=== PATIENT | female | born 1970 | race African-American/Black ===

== ENCOUNTER 2016-06-11 14:56 | Emergency (ER) | payer MEDICAID, OTHER ==
[~2016-06-11] VITALS: Ht 167.6 cm; Wt 85.7 kg
[~2016-06-11 14:56] MED LIST: CYCLOBENZAPRINE10 MG ORAL; IBUPROFEN600 MG ORAL; NORCO 5-325 TA1 EACH ORAL
[2016-06-11] MEDS ORDERED: NKM (15:13)
[2016-06-11 15:18] VITALS: BP 156/86
--- NOTE | 2016-06-11 15:43 | Emergency Room Report ---
History of Present Illness General Chief Complaint: Sore Throat Source: Patient Present Illness HPI 45 YO Female presents to the ED c/o : sore throat, tonsillar swelling, and unilateral nasal congestion with facial pain and purulent d/c x 4 days. She denies fevers however she does report chills patient denies cough at this time patient reports increased mucus production and then reports that she has unilateral nasal congestion and is blowing thick green and bloody mucus from her nose. Patient also reports 8/10 headache which is exacerbated upon bending over. Patient states that the headache was slow onset. Patient reports tenderness to the right side of the face. She denies changes in vision or pain with eye movements. Denies abdominal pain, neck pain/stiffness, rashes, recent travel or ill contacts. pt. denies immune compromise. She denies discharge from eyes. Denies CP, Palpitations, LOC, AMS, dizziness, Changes in Vision, Sensation, paresthesias, or a sudden severe headache. Allergies: Coded Allergies: No Known Allergies (Unverified , 01/13/15) Patient History Past Medical History: see triage record Past Surgical History: none Pertinent Family History: none Last Menstrual Period: 06/04/2016 Now: No : 3 Para: 3 Immunizations: UTD Reviewed Nursing Documentation: PMH: Agreed, PSxH: Agreed Nursing Documentation-PMH Past Medical History: No Stated History Review of Systems All Other Systems: negative except mentioned in HPI Physical Exam Vital Signs Date Time Temp Pulse Resp B/P Pulse Ox O2 Delivery O2 Flow Rate FiO2 06/11/16 15:04 99.3 104 16 156/86 99 Room Air Sp02 EP Interpretation: reviewed, normal General Appearance: no apparent distress, alert, GCS 15, non-toxic Head: normocephalic, atraumatic Eyes: bilateral eye EOMI, bilateral eye PERRL, bilateral eye abnormal EOM, bilateral eye normal inspection ENT: hearing grossly normal, normal pharynx, no angioedema, normal voice, TMs + canals normal, uvula midline, moist mucus membranes, nasal congestion - unilateral purulent nasal d/c noted with right sided maxillary TTP. , pharyngeal erythema, other - no tonsillar exudates noted, pharyngeal erythema present. Neck: full range of motion, supple/symm/no masses Respiratory: chest non-tender, lungs clear, normal breath sounds, speaking full sentences Cardiovascular #1: regular rate, rhythm, no edema, normal capillary refill Musculoskeletal: back normal, gait/station normal, normal range of motion, non- tender, no calf tenderness Neurologic: alert, oriented x3, responsive, motor strength/tone normal, sensory intact, speech normal Psychiatric: judgement/insight normal, memory normal, mood/affect normal, no suicidal/homicidal ideation Skin: normal color, no rash, warm/dry, well hydrated Lymphatic: no adenopathy Medical Decision Making PA Attestation Dr. Davey is my supervising Physician whom patient management has been discussed with. Diagnostic Impression: Primary Impression: Pharyngitis Qualified Codes: J02.9 - Acute pharyngitis, unspecified Additional Impression: Sinusitis, acute Qualified Codes: J01.00 - Acute maxillary sinusitis, unspecified ER Course Pt. presents to the ED c/o : sore throat, tonsillar swelling, and unilateral nasal congestion with facial pain and purulent d/c x 4 days. Ddx considered but are not limited to: pharyngitis, strep, [employer], ludwigs angina, URI, sinusitis Vital signs: are WNL, pt. is afebrile H&PE are most consistent with: pharyngitis, and acute sinusitis, will treat with abx due to severity of symptoms. ORDERS: None required at this time as the diagnosis is clinical ED INTERVENTIONS: -Tylenol PO DISCHARGE: At this time pt. is stable for d/c to home. Will provide printed patient care instructions, and any necessary prescriptions. Care plan and follow up instructions have been discussed with the patient prior to discharge. Last Vital Signs Date Time Temp Pulse Resp B/P Pulse Ox O2 Delivery O2 Flow Rate FiO2 06/11/16 15:18 99.3 104 16 156/86 99 Room Air Disposition: HOME, SELF-CARE Condition: Stable Scripts Acetaminophen* (TYLENOL EXTRA STRENGTH*) 500 Mg Tablet 500 MG ORAL Q6H Y for Mild Pain/Temp > 100.5, #30 TAB 0 Refills Prov: Nadya Neves P.A. 06/11/16 Pseudoephedrine Hcl* (NEXAFED*) 30 Mg Tablet 30 MG ORAL Q6H Y for congestion, #20 TAB Prov: Nadya Neves P.A. 06/11/16 Amoxicillin/Potassium Clav 875-125* (AUGMENTIN 875-125 TABLET*) 1 Each Tablet 1 TAB ORAL TWICE A DAY for 10 Days, #20 TAB Prov: Nadya Neves 06/11/16 Departure Forms: Return to Work Return to Work Date: Jun 13, 2016 Work Restrictions: None Return to Full Activity: Jun 13, 2016 Patient Instructions: Pharyngitis, [id number], Sinusitis, Adult, [id number] Additional Instructions: Take medications as directed. Follow up with PCP in 3-5 days Return sooner to ED if new symptoms occur, or current symptoms become worse. - Please note that this Emergency Department Report was dictated using [employer] service representative technology software, occasionally this can lead to erroneous entry secondary to interpretation by the dictation equipment. Nadya Neves Jun 11, 2016 15:43
[2016-06-11] MEDS ORDERED: NEXAFED30 MG ORAL (15:44)
[2016-06-11] MEDS ORDERED: TYLENOL EXTRA500 MG ORAL (15:44)
[2016-06-11] MEDS ORDERED: AUGMENTIN 875-1 EAC1 ORAL (15:44)
[2016-06-11 15:58] VITALS: BP 156/86
== END 2016-06-11 16:04 | disposition home or self-care (01) ==
LOC: EMR 15:51
DX: J02.9 Acute pharyngitis, unspecified (principal); J01.00 Acute maxillary sinusitis, unspecified
CPT/HCPCS: 99284